=== PATIENT | female | born 2000 | race Two or more races ===

== ENCOUNTER 2025-07-31 14:54 | Outpatient (CLI) | payer OTHER | END 2025-07-31 14:57 | disposition home or self-care (01) | LOC: PRENATAL 14:54 | PROVIDERS: ATTEND Obstetrics & Gynecology Maternal & Fetal Medicine | DX: O44.02 Complete placenta previa NOS or without hemorrhage, second trimester (principal); O36.1930 Maternal care for other isoimmunization, third trimester, not applicable or unspecified; Z3A.22 22 weeks gestation of pregnancy ==